=== PATIENT | male | born 1995 | race Caucasian/White ===

== ENCOUNTER 2017-01-22 19:17 | Emergency (ER) | payer SELFPAY ==
[~2017-01-22] VITALS: Ht 170.2 cm; Wt 80.5 kg
[2017-01-22 19:27] VITALS: Ht 170.2 cm; Wt 80.5 kg
[2017-01-22 21:38] LABS: BASOPHILS % 0.3 % (0.0-2.0); EOSINOPHILS # 0.1 10^3/ul (0.0-0.5); EOSINOPHILS % 2.4 % (0.0-7.0); HEMOGLOBIN 14.9 g/dl (14.0-18.0); LYMPHOCYTES # 2.8 10^3/ul (0.8-2.9); LYMPHOCYTES % 47.5 % (18.0-55.0); MEAN CORPUSCULAR HEMOGLOBIN 30.2 pg (29.0-33.0); MEAN CORPUSCULAR HGB CONC 33.9 g/dl (32.0-37.0); MEAN CORPUSCULAR VOLUME 89.2 fl (72.0-104.0); MEAN PLATELET VOLUME 10.4 fl (7.4-10.4); MONOCYTE # 0.7 10^3/ul (0.3-0.9); MONOCYTES % 11.4 % (0.0-13.0); NEUTROPHIL # 2.3 10^3/ul (1.6-7.5); NEUTROPHILS % 38.2 % (30.0-74.0); PLATELET COUNT 216 10^3/UL (140-415); RED BLOOD COUNT 4.93 10^6/ul (4.70-6.10); RED CELL DISTRIBUTION WIDTH 12.4 % (11.5-14.5); WHITE BLOOD COUNT 5.9 10^3/ul (4.8-10.8)
[2017-01-22 21:55] LABS: ALBUMIN 4.9 g/dl (3.3-4.9); ALBUMIN/GLOBULIN RATIO 1.44; BILIRUBIN,INDIRECT 0.4 mg/dl (0-1.1); BILIRUBIN,TOTAL 0.4 mg/dl (0.2-1.3); CALCIUM 9.8 mg/dl (8.4-10.2); CREATININE 0.78 mg/dl (0.61-1.24); POTASSIUM 4.1 mmol/L (3.5-5.1); TOTAL PROTEIN 8.3 g/dl (6.1-8.1)
--- NOTE | 2017-01-22 22:10 | RADRPT ---
PROCEDURE: Portable chest x-ray. CLINICAL INDICATION: Chest pain. TECHNIQUE: Portable AP view of the chest. COMPARISON: None. FINDINGS: No pulmonary edema or conolidation is identified. The cardiac silhouette is magnified. No pleural effusion is seen. There is no pneumothorax. IMPRESSION: 1. No evidence of acute cardiopulmonary disease. RPTAT: HTAR .Clint Powell MD, MD Date Time Electronically viewed and signed by .Clint Powell MD, on 01/22/2017 22:10 .R/
[2017-01-22] MEDS ORDERED: IBUP-1542 PO (22:19)
[2017-01-22] MEDS ORDERED: MECL12.574 PO (22:19)
[2017-01-22 22:38] VITALS: BP 118/62; PULSE 72; RESP 20; TEMP 98.2
--- NOTE | 2017-01-23 01:32 | ERD ---
ER Documentation Chief Complaint Date/Time DATE: 01/23/17 TIME: 01:27 Chief Complaint dizzinesx x 2 weeks, chest wall pain since 1 hour ago HPI This patient is a 21-year-old male presenting to the emergency department with complaints of intermittent dizziness ongoing for the past 2 weeks. Symptoms have been not improving. He states the room is spinning. Symptoms are currently resolved. Additionally he reports mild chest pain intermittently over the past 2 weeks but does not feel it now. He does have family history of anemia but no personal history. He denies fevers, chills, or other symptoms currently. ROS All systems reviewed and are negative except as per history of present illness. Medications Home Meds Active Scripts Ibuprofen* (Motrin*) 600 Mg Tab, 600 MG PO Q6, #30 TAB Prov:BRYAN IBRAHIM PA-C 01/22/17 Meclizine Hcl* (Antivert*) 12.5 Mg Tab, 12.5 MG PO Q6H Y for DIZZINESS, #20 TAB Prov:BRYAN IBRAHIM PA-C 01/22/17 Allergies Allergies: Coded Allergies: No Known Allergy (Unverified , 01/22/17) PMhx/Soc Medical and Surgical Hx: pt denies Medical Hx, pt denies Surgical Hx History of Surgery: No Anesthesia Reaction: No Hx Neurological Disorder: No Hx Respiratory Disorders: No Hx Cardiac Disorders: No Hx Psychiatric Problems: No Hx Miscellaneous Medical Probl: No Hx Alcohol Use: No Hx Substance Use: No Hx Tobacco Use: No Smoking Status: Never smoker Physical Exam Vitals Vital Signs Date Time Temp Pulse Resp B/P Pulse Ox O2 Delivery O2 Flow Rate FiO2 01/22/17 22:38 98.2 72 20 118/62 99 01/22/17 19:27 98.2 86 20 134/78 99 Physical Exam Const: . Nontoxic, well-appearing male in no acute distress. No signs of paleness Head: Atraumatic Eyes: Normal Conjunctiva ENT: Normal External Ears, Nose and Mouth. Neck: Full range of motion..~ No meningismus. Resp: Clear to auscultation bilaterally Cardio: Regular rate and rhythm, no murmurs Abd: Soft, non tender, non distended. Normal bowel sounds Skin: No petechiae or rashes Back: No midline or flank tenderness Ext: No cyanosis, or edema Neur: Awake and alert Psych: Normal Mood and Affect Result Diagram: 01/22/17211401/22/172114 Results 24 hrs Laboratory Tests Test 01/22/17 21:15 White Blood Count 5.910^3/ul Red Blood Count 4.9310^6/ul Hemoglobin 14.9g/dl Hematocrit 44.0% Mean Corpuscular Volume 89.2fl Mean Corpuscular Hemoglobin 30.2pg Mean Corpuscular Hemoglobin Concent 33.9g/dl Red Cell Distribution Width 12.4% Platelet Count 75083^3/UL Mean Platelet Volume 10.4fl Neutrophils % 38.2% Lymphocytes % 47.5% Monocytes % 11.4% Eosinophils % 2.4% Basophils % 0.3% Nucleated Red Blood Cells % 0.0/100WBC Neutrophils # 2.310^3/ul Lymphocytes # 2.810^3/ul Monocytes # 0.710^3/ul Eosinophils # 0.110^3/ul Basophils # 0.010^3/ul Nucleated Red Blood Cells # 0.010^3/ul Sodium Level 144mmol/L Potassium Level 4.1mmol/L Chloride Level 105mmol/L Carbon Dioxide Level 27mmol/L Anion Gap 16 Blood Urea Nitrogen 16mg/dl Creatinine 0.78mg/dl Glucose Level 80mg/dl Calcium Level 9.8mg/dl Total Bilirubin 0.4mg/dl Direct Bilirubin 0.00mg/dl Indirect Bilirubin 0.4mg/dl Aspartate Amino Transf (AST/SGOT) 23IU/L Alanine Aminotransferase (ALT/SGPT) 30IU/L Alkaline Phosphatase 73IU/L Total Protein 8.3g/dl Albumin 4.9g/dl Globulin 3.40g/dl Albumin/Globulin Ratio 1.44 Procedures/MDM EMERGENCY DEPARTMENT COURSE / MEDICAL DECISION MAKING: This is a 21-year-old male who comes to the emergency room secondary to complaints of dizziness, chest pain. Lab results reviewed. CBC: Within normal limits. Chemistry: Within normal limits. EKG: Interpreted by ED physician, Dr. Valentina Evangelista, at 1940 Rate/Rhythm: Normal sinus rhythm with a rate of 90 bpm. QRS, ST, T-waves: [No changes consistent w/ acute ischemia] Impression: [No evidence of ischemia or arrhythmia] EK, interpreted by ED physician, Dr. Valentina Evangelista, at 2110 Rate/Rhythm: Normal sinus rhythm at the rate of 70 bpm. QRS, ST, T-waves: [No changes consistent w/ acute ischemia] Impression: [No evidence of ischemia or arrhythmia] Radiology: PROCEDURE: Portable chest x-ray. CLINICAL INDICATION: Chest pain. TECHNIQUE: Portable AP view of the chest. COMPARISON: None. FINDINGS: No pulmonary edema or conolidation is identified. The cardiac silhouette is magnified. No pleural effusion is seen. There is no pneumothorax. IMPRESSION: 1. No evidence of acute cardiopulmonary disease. RPTAT: HTAR .Clint Powell MD, MD Date Time Electronically viewed and signed by .Clint Powell MD, on 01/22/2017 22:10 The primary diagnosis is chest wall pain of unclear etiology. I have low suspicion for acute coronary syndrome, atrial fibrillation, central cause of vertigo, sepsis, or other emergent conditions at this time. Discharge: I have discussed the lab results and diagnostic findings with the patient and answered any questions or concerns. The patient was discharged with a prescription for ibuprofen and meclizine. The patient was advised to followup with their PMD in 1-2 days and to return to the Emergency Department if there are any new or worsening symptoms. The patient understood and agreed with the diagnosis, treatment and plan. The patient is stable for discharge at this time. Departure Diagnosis: Primary Impression: Chest wall pain Condition: Fair Patient Instructions: Possible Causes of Dizziness or Fainting, Chest Wall Pain , Costochondritis Additional Instructions: Follow up with your PCP within the next 1-3 days for a repeat evaluation. If you require a referral to a specialist, your Primary Care Provider may be able to provide this for you. In most patient cases, a referral is not required. If you have further questions regarding this matter, please ask your Primary Care Provider. Return the the emergency department immediately if symptoms worsen or change. If you have any questions regarding medications, ask your pharmacist or us before you leave. If any adverse reactions, occur while taking your medications, discontinue the treatment and return to the emergency department immediately. If any new or worsening symptoms, uncontrolled fevers, or other unexplained symptoms occur, return to the emergency department immediately. Take your medications as directed, and complete the entire course of treatment. BRYAN IBRAHIM PA-C Jan 23, 2017 01:32
== END 2017-01-22 22:40 | disposition home or self-care (01) ==
LOC: FTE 19:17
DX: R07.89 Other chest pain (principal)
CPT/HCPCS: 36415; 71010; 80053; 85025; 93005